=== PATIENT | female | born 1990 | race Two or more races ===

== ENCOUNTER 2019-09-18 08:55 | Emergency (ER) | payer OTHER ==
[~2019-09-18] VITALS: Ht 170.2 cm; Wt 99.8 kg
[2019-09-18 09:23] VITALS: BP 97/46
== END 2019-09-18 11:00 | disposition home or self-care (01) ==
LOC: ER 08:55
DX: M54.2 Cervicalgia (principal); M54.6 Pain in thoracic spine; R51 Headache; V49.9XXA Car occupant (driver) (passenger) injured in unspecified traffic accident, initial encounter; Y93.89 Activity, other specified; Y92.89 Other specified places as the place of occurrence of the external cause; Y99.8 Other external cause status
CPT/HCPCS: 72040; 72070